=== PATIENT | male | born 1940 | race Two or more races ===

== ENCOUNTER 2016-06-27 04:51 | Inpatient (IN) | payer MEDICARE, BC ==
[~2016-06-27 04:51] MED LIST: ACETAMINOPHEN500 M5 PO; ADVAIR 100-501 EACH PO; ALLERGY RELIE15.8 ML; AMLODIPINE BESY10 M1 PO; ASPIRIN325 M3 PO; AZELASTINE137 MCG/01; CRESTOR5 M1 PO; INCRUSE ELLI62.5 MCG INH; MILK OF MAGNESIA PO; MOBIC7.5 M2 PO; OMEPRAZOLE20 M3 PO; ROXICODONE5 M2 PO; SENOKOT-S TABL1 EACH PO; TYLENOL325 M2 PO; ULTRAM50 M1 PO
[2016-06-28 06:29] LABS: BASO % 0.1 % (0-2); HCT-HEMATOCRIT 33.5 % (36.0-53.5); IMMATURE GRANULOCYTES ABSOLUTE 0.05 tho/cmm (0-0.03); IMMATURE GRANULOCYTES PERCENT 0.3 % (0-0.3); LYMPH % 9.5 % (20-45); LYMPH ABSOLUTE COUNT 1.4 tho/cmm (0.8-4.5); MCH (MEAN CORPUSCULAR HGB) 29.6 pg (28.0-32.0); MCHC MEAN CORPUSCULAR HGB CONC 32.8 % (32.0-36.0); MCV (MEAN CELL VOLUME) 90.1 fl (82.0-96.0); MEAN PLATELET VOLUME 8.6 cmc (9.4-12.4); MONOCYTE ABSOLUTE COUNT 1.8 tho/cmm (0.0-1.2); NEUTROPHIL ABSOLUTE COUNT 11.7 tho/cmm (1.6-8.0); NEUTROPHIL-AUTOMATED 11.7 tho/cmm (1.6-8.0); NEUTROPHILS % 78.1 % (40-80); PLATELET COUNT 236 tho/cmm (150-450); RED BLOOD COUNT 3.72 mil/cmm (4.40-5.70); RED CELL DISTRIBUTION WIDTH 14.1 % (12.4-16.4)
[2016-06-28] MEDS ORDERED: ASPIRIN81 M1 PO (15:27)
[2016-06-28] MEDS ORDERED: ROXICODONE5 M2 PO (15:27)
[2016-06-28] MEDS ORDERED: ULTRAM50 M1 PO (15:28)
[2016-06-28] MEDS ORDERED: SENNA-S TABLET1 EAC3 PO (15:30)
[2016-06-28] MEDS ORDERED: AZELASTINE137 MCG/01 (15:33)
[2016-06-28] MEDS ORDERED: MOBIC7.5 M2 PO (15:33)
== END 2016-06-28 16:45 | disposition home health service (06) | DRG 470 ==
LOC: SHSB 04:51 → ORE 06:49 → PACU 09:14 → 5EA 09:55
PROVIDERS: ADMIT Orthopaedic Surgery Foot and Ankle Surgery
PROC: 3E0F7GC Introduction of Other Therapeutic Substance into Respiratory Tract, Via Natural or Artificial Opening (ICD-10-PCS; principal; 2016-06-27)
PROC: 0SRC0JZ Replacement of Right Knee Joint with Synthetic Substitute, Open Approach (ICD-10-PCS; principal; 2016-06-27)
DX: M17.11 Unilateral primary osteoarthritis, right knee (principal); I10 Essential (primary) hypertension; D72.829 Elevated white blood cell count, unspecified; E78.5 Hyperlipidemia, unspecified; J45.909 Unspecified asthma, uncomplicated; K21.9 Gastro-esophageal reflux disease without esophagitis; R09.02 Hypoxemia
CPT/HCPCS: C1713; C1776; J0171; J0690; J1885; J2270; J2795